=== PATIENT | female | born 1985 | race Caucasian/White ===

== ENCOUNTER → 2021-03-31 | Outpatient (CLI) | payer MEDICARE, OTHER ==
[~2021-03-31] MED LIST: ASPIRIN CHEWABL81 MG PO; NITROSTAT0.4 MG SL
[2021-03-31 13:57] LABS: HEMOGLOBIN 14.6 gm/dl (12.3-15.3); RED BLOOD COUNT 4.96 M/UL (4.00-5.10); WHITE BLOOD COUNT 13.5 K/UL (4.5-11.0)
[2021-04-01 10:13] LABS: COMPLEMENT C4, SERUM 50 mg/dL (12-38)
[2021-04-01 16:13] LABS: ATYPICAL PANCA <1:20 titer (Neg:<1:20); CYTOPLASMIC (C-ANCA) <1:20 titer (Neg:<1:20); PERINUCLEAR (P-ANCA) <1:20 titer (Neg:<1:20)
[2021-04-01 17:13] LABS: COMPLEMENT C3, SERUM 175 mg/dL (82-167)
== END ==
LOC: LAB 13:04
PROVIDERS: Internal Medicine
DX: D89.89 Other specified disorders involving the immune mechanism, not elsewhere classified (principal); L56.8 Other specified acute skin changes due to ultraviolet radiation; M25.50 Pain in unspecified joint; R53.83 Other fatigue
CPT/HCPCS: 36415; 85025; 86160; 86256